=== PATIENT | female | born 1990 | race African-American/Black ===

== ENCOUNTER 2024-05-08 21:17 | Emergency (ER) | payer BC, MEDICAID ==
[~2024-05-08] VITALS: Ht 165.1 cm; Wt 142.0 kg
[2024-05-08] MEDS: PREDNISONE 20MG TABLET PO ONE (23:00)
[2024-05-08] MEDS: IPRATROPIUM/ALBUTEROL 0.5-3(2.5)MG/3ML NEB HHN ONE (23:28)
[2024-05-08 23:29] VITALS: PULSE 96; RESP 18; O2SAT 98
[2024-05-09] MEDS ORDERED: P20 MT (00:18)
[2024-05-09] MEDS ORDERED: ALBU6.7H15 INH (00:18)
[2024-05-09] MEDS ORDERED: DOXY100C5 MT (00:18)
[2024-05-09 00:35] VITALS: BP 152/92; PULSE 77; RESP 18; TEMP 97.9
== END 2024-05-09 00:35 | disposition home or self-care (01) ==
LOC: ER 21:17
DX: R06.2 Wheezing (principal); J18.9 Pneumonia, unspecified organism
CPT/HCPCS: 81025; 71045; 94640; 99283; J7512; Z7610 ×3